=== PATIENT | female | born 1960 ===

== ENCOUNTER 2024-08-13 05:13 | Day surgery (SDC) | payer OTHER ==
[2024-08-07 12:52] VITALS: BP 117/78
[~2024-08-13] VITALS: Ht 162.6 cm; Wt 65.8 kg
[~2024-08-13 05:13] MED LIST: ENDOMETRIN100 MG; FLUOXETINE DR90 MG; SYNTHROID100 MCG PO
[2024-08-13] MEDS ORDERED: POVIDONE-IODINE 118 ML BOTT TOP ONE (07:45)
[2024-08-13] MEDS ORDERED: CHLORHEXIDINE GLUCONATE 120 ML BOTTLE TOP ONE (07:45)
[2024-08-13] MEDS ORDERED: IBU600 MG PO (08:13)
== END 2024-08-13 13:00 | disposition home or self-care (01) ==
LOC: CIR.AMB 05:13
PROVIDERS: ATTEND Obstetrics & Gynecology Gynecology
DX: N84.0 Polyp of corpus uteri (principal); E03.8 Other specified hypothyroidism